=== PATIENT | male | born 1950 | race African-American/Black ===

== ENCOUNTER 2018-07-14 13:36 | Emergency (ER) | payer MEDICARE, MEDICAID ==
[~2018-07-14] VITALS: Ht 177.8 cm; Wt 91.0 kg
[2018-07-14] MEDS ORDERED: TRAMADOL 50MG TABLET PO ONE (15:30)
[2018-07-14 17:51] VITALS: BP 108/64
== END 2018-07-14 17:54 | disposition home or self-care (01) ==
LOC: ER 14:30
DX: K40.90 Unilateral inguinal hernia, without obstruction or gangrene, not specified as recurrent (principal); E11.9 Type 2 diabetes mellitus without complications; I10 Essential (primary) hypertension; Z90.89 Acquired absence of other organs
CPT/HCPCS: 99283